=== PATIENT | female | born 1995 | race Two or more races ===

== ENCOUNTER 2024-06-18 06:25 | Day surgery (SDC) | payer MEDICAID, SELFPAY ==
[2024-06-15 08:55] VITALS: BMI 32.6
[2024-06-15 10:15] LABS: HCG Qualitative,Urine Negative
[2024-06-18] VITALS (7 sets, daily range): BP systolic 105–132; BP diastolic 60–90; PULSE 57–94; RESP 12–19; TEMP 36.2–36.5; O2SAT 96–100; BMI 32.2
--- NOTE | 2024-06-18 08:51 | PD.SUROPNT ---
Date of Procedure 06/18/24 Pre Op Diagnosis Left tympanic membrane perforation Post Op Diagnosis Left tympanic membrane perforation Procedure Left tympanoplasty using 9 mm bio design graft Findings 3-4 anterior marginal perforation that was dry. There was some surrounding tympanosclerosis as well. No signs of middle ear infection. The ossicular chain was intact and mobile. 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 She underwent a tympanomastoidectomy in December and a type I Paparella tympanostomy tube was inserted at that time. The infections resolved however when the tube extruded the perforation did not close. Patient requested to have the perforation repaired. Patient was marked and transferred to the operative suite where she was anesthetized and intubated. The postauricular region was still inflamed and has some residual glue on it so it was decided that that time to proceed with the bio design graft rather than go through the area of inflammation and risk causing more inflammation. Timeout was performed. The area was sterilely prepped and draped. The canal was here irrigated with warm saline solution and injected with 1% lidocaine with 1 100,000 dilution epinephrine. Approximately 1 cc total was used. The margins of the perforation were prepped with third millimeter hook. The annulus anteriorly was gently elevated out to try and tucked the graft underneath it. Posterior tympanomeatal flap was then developed and the ear turned forward. The chorda tympani nerve was identified and preserved. The ossicular chain was visualized and mobility was tested and found to be intact. The drum was elevated up off the long process of the malleus. The graft is dipped in saline and then notched superiorly. The graft was tucked and anteriorly up to the annulus. Surgifoam was then packed in the middle ear space to hold the graft up in proper position. The graft did not quite reach to the canal wall posteriorly but as mentioned was tucked between the tympanic membrane and the long process of the malleus. The graft did extend over most of the region where the tympanosclerosis was present. The tympanomeatal flap was returned back to its normal position. More Surgifoam dipped in saline was packed on top of the graft and the tympanic membrane. Double antibiotic ointment was then injected on top of the Surgifoam. Sterile cottonball was placed in the external meatus and the patient is awakened and taken recovery room in stable condition Anesthesia GETA Pathology / specimen None Estimated Blood Loss 1 Surgeon Emile Sauceda DO Surgical Staff Operation Date: 06/18/24 08:30 Case Staff Anesthesiologist: Stanislaw Romero
--- NOTE | 2024-06-18 08:54 | SUR.PHASEI ---
0854: Pt. has oral airway in place, vitals stable, breathing unlabored, no signs of distress, dressing to left ear CDI, no active bleed noted, report received from MD Romero and Master RN.
[2024-06-18] MEDS: fentaNYL CIT INJ 50 mCg/ML AMP 2ML IV (09:16)
[2024-06-18] MEDS: ONDANSETRON INJ 2 MG/ML INJ 2 ML 4 MG IV (09:16)
[2024-06-18] MEDS: ACETAMINOPHEN IVPB 1,000 MG/100 ML VIAL 250 MG IV (09:23)
--- NOTE | 2024-06-18 09:45 | SUR.PHASEII ---
0945: Pt. AAOx4, vitals stable, breathing unlabored, no complaint of pain or nausea, dressing to left ear CDI, no active bleed noted, pt. tolerated sips of water well, pt. ambulated to wheelchair with steady gait and no assist, no complications. Gave discharge instructions to the pt. and her ride, both verbalized understanding and had no further questions. Pt. left with all personal belongings.
== END 2024-06-18 09:45 | disposition home or self-care (01) ==
PROVIDERS: PCP Nurse Practitioner Family; Referring Provider Otolaryngology; Visit Provider Otolaryngology
PROC: (CPT 69631; principal; 2024-06-18 08:15)
DX: H72.92 Unspecified perforation of tympanic membrane, left ear (principal); H90.72 Mixed conductive and sensorineural hearing loss, unilateral, left ear, with unrestricted hearing on the contralateral side
CPT/HCPCS: 69631; 81025; A4217; A4649; C1763; J0131; J0171; J0690; J1100; J2405; J2704; J2765; J3010; J3473; J3490; A9270